=== PATIENT | female | born 1990 | race Caucasian/White ===

== ENCOUNTER 2021-12-21 14:50 | Emergency (ER) | payer OTHER ==
[2021-12-21] MEDS ORDERED: Sodium Chloride 0.9% 10 ML Syringe FLUSH PRN ×2 (15:02→15:26)
[2021-12-21] MEDS ORDERED: fentaNYL 100 MCG/2 ML SDV IVPUSH ONE (15:02)
[2021-12-21] MEDS ORDERED: Lactated Ringers 1,000 ML IV SCH (15:15)
[2021-12-21] MEDS ORDERED: Sodium Chloride 0.9% 50 ML IV ONE (15:26)
[2021-12-21] MEDS ORDERED: Iopamidol 612 MG/ML 100 ML Bottle IV PRN (15:26)
[2021-12-21 15:35] LABS: ESTIMATED GFR 89 mL/min (>60)
== END 2021-12-21 18:15 | disposition home or self-care (01) ==
LOC: JP.ED 14:50
DX: S30.0XXA Contusion of lower back and pelvis, initial encounter (principal); S63.602A Unspecified sprain of left thumb, initial encounter; V86.99XA Unspecified occupant of other special all-terrain or other off-road motor vehicle injured in nontraffic accident, initial encounter
CPT/HCPCS: 29125; 36415; 73110; 74177; 80053; 84703; 85025; 96374; 99284; J3010; J3490; J7120; Q9967; 99283